=== PATIENT | female | born 1950 | race Caucasian/White ===

== ENCOUNTER 2018-08-08 01:57 | Emergency (ER) | payer BC, MEDICARE ==
[~2018-08-08] VITALS: Ht 152.4 cm; Wt 57.7 kg
[2018-08-08] MEDS ORDERED: BUDE10.2 IH (03:00)
[2018-08-08] MEDS ORDERED: MESA800T PO (03:00)
[2018-08-08] MEDS ORDERED: ASPIRIN 325 MG TABLET PO ONE (03:30)
[2018-08-08 04:18] LABS: EOSINOPHILS % (AUTO) 4.7 % (1.0-6.0); HEMATOCRIT 39.1 % (36-46); HEMOGLOBIN 13.2 g/dL (12.0-16.0); LYMPHOCYTES # (AUTO) 2.4 K/uL (1.0-4.8); MEAN CORPUSCULAR HEMOGLOBIN 30.4 pg (26.0-34.0); MEAN CORPUSCULAR HGB CONC 33.7 G/dL (31.0-37.0); MEAN CORPUSCULAR VOLUME 90 fL (80-100); MONOCYTES # (AUTO) 0.8 K/uL (0.1-1.0); MONOCYTES % (AUTO) 9.8 % (2.0-9.0); NEUTROPHILS # (AUTO) 4.1 K/uL (1.8-7.7); NEUTROPHILS % (AUTO) 53.5 % (40.0-70.0); PLATELET COUNT (AUTO) 331 K/uL (150-450); RED BLOOD CELL COUNT(AUTO) 4.33 MIL/uL (4.00-5.20); RED CELL DISTRIBUTION WIDTH 13.6 % (11.5-14.5)
[2018-08-08 04:28] LABS: CALCIUM, TOTAL 9.4 mg/dL (8.8-10.5); POTASSIUM 3.9 mmol/L (3.5-5.1)
[2018-08-08 04:42] LABS: ALBUMIN 3.2 g/dL (3.4-5.0); BILIRUBIN,TOTAL 0.1 mg/dL (0.1-1.0); THYROID STIMULATING HORMONE 3.43 uIU/mL (0.36-3.74)
[2018-08-08 05:10] VITALS: BP 141/88
== END 2018-08-08 05:51 | disposition home or self-care (01) ==
LOC: EMS 03:00
DX: K21.9 Gastro-esophageal reflux disease without esophagitis (principal); I49.3 Ventricular premature depolarization; J45.909 Unspecified asthma, uncomplicated; R03.0 Elevated blood-pressure reading, without diagnosis of hypertension; Z79.899 Other long term (current) drug therapy
CPT/HCPCS: 84443; 93005

== ENCOUNTER 2021-03-04 15:39 | Emergency (ER) | payer MEDICARE, OTHER ==
[~2021-03-04] VITALS: Ht 162.6 cm; Wt 63.6 kg
[~2021-03-04 15:39] MED LIST: BUDE10.2 IH; MESA800T PO
[2021-03-04] MEDS ORDERED: SODIUM CHLORIDE 0.9% 1,000 ML IV ONE (16:00)
[2021-03-04] MEDS ORDERED: PROPARACAINE HCL 0.5% 15 ML OPHTHALMIC SOLUTION OS ONE (16:00)
[2021-03-04 17:17] VITALS: BP 139/78
== END 2021-03-04 17:45 | disposition home or self-care (01) ==
LOC: EMS 15:41
DX: H10.212 Acute toxic conjunctivitis, left eye (principal); J45.909 Unspecified asthma, uncomplicated
CPT/HCPCS: 99284; J7030

== ENCOUNTER 2022-03-07 21:04 | Emergency (ER) | payer MEDICARE, OTHER ==
[~2022-03-07] VITALS: Ht 152.4 cm; Wt 60.9 kg
[2022-03-07 22:45] VITALS: BP 136/69
[2022-03-07] MEDS ORDERED: AMOX1TAB16 PO (22:47)
[2022-03-08] MEDS ORDERED: MESA800T PO (12:09)
== END 2022-03-07 22:57 | disposition home or self-care (01) ==
LOC: EMS 21:05
DX: S51.851A Open bite of right forearm, initial encounter (principal); L03.113 Cellulitis of right upper limb; J45.909 Unspecified asthma, uncomplicated; K51.90 Ulcerative colitis, unspecified, without complications
CPT/HCPCS: 99283; 99284